=== PATIENT | male | born 1950 | race African-American/Black ===

== ENCOUNTER 2020-04-19 12:32 | Emergency (ER) | payer OTHER ==
[~2020-04-19] VITALS: Ht 142.2 cm; Wt 63.6 kg
[2020-04-19] MEDS ORDERED: LOSA-30 PO (12:38)
[2020-04-19 12:43] VITALS: BP 109/55
== END 2020-04-19 13:08 | disposition left against medical advice (07) ==
LOC: EMS 12:46
DX: R07.0 Pain in throat (principal); Z53.21 Procedure and treatment not carried out due to patient leaving prior to being seen by health care provider